=== PATIENT | male | born 1955 | race Caucasian/White ===

== ENCOUNTER 2016-06-05 09:18 | Inpatient (IN) | payer BC ==
[~2016-06-05] VITALS: Ht 177.8 cm; Wt 109.8 kg
[~2016-06-05 09:18] MED LIST: ACIDOPHILUS LAC1 CAP PO; ASPIRIN EC81 M1 PO; B C POWDER PO; BAYER CHEWABLE81 MG PO; BYSTOLIC5 MG PO; CYCLOBENZAPRINE10 MG PO; FOLIC ACID1 MG PO; HYDROCODONE-APA1 TAB PO; IMDUR30 MG PO; ISOSORBIDE MONO60 M1 PO; L-ARGININE500 MG PO; LEVAQUIN500 MG PO; PLAQUENIL200 MG PO; PLAVIX75 MG PO; POTASSIUM99 M1 PO; PRAVACHOL20 MG PO; PROTONIX40 MG PO; TREXALL5 MG OR; TREXALL5 MG PO
[2016-06-05 10:08] LABS: HEMATOCRIT 44.5 % (42.0-54.0); LYMPHOCYTES 14.7 % (15-50); MCH 33.1 pg (26.0-34.0); MCV 92.1 fL (80.0-100.0); MEAN PLATELET VOLUME 9.1 fL (7.4-10.4); NEUTROPHILS 74.6 % (40-80); RBC 4.83 10x6/uL (4.20-6.10); RDW 12.9 % (11.5-14.5); WBC 5.3 10x3/uL (4.8-10.8)
[2016-06-05 10:14] LABS: PLATELET COUNT 220 10x3/uL (130-400)
[2016-06-05 10:28] LABS: APTT 27.4 SECONDS (22.8-39.4); INR 1.1 (0.85-1.17); PROTIME 14.1 SECONDS (11.6-15.0)
[2016-06-05 10:35] LABS: ALBUMIN 3.9 g/dL (3.4-5.0); ALKALINE PHOSPHATASE 93 U/L (46-116); ALT (SGPT) 48 U/L (10-68); CALC OSMOLALITY 283 mosm/kg (275-300); CARBON DIOXIDE 24.6 mmol/L (21.0-32.0); CHLORIDE - SERUM 105 mmol/L (98-107); CREATININE - SERUM 0.7 mg/dL (0.6-1.3); GLUCOSE 99 mg/dL (74-106); POTASSIUM - SERUM 3.8 mmol/L (3.5-5.1); PROTEIN - SERUM 6.8 g/dL (6.4-8.2); SODIUM 139 mmol/L (136-145); UREA NITROGEN 30 mg/dL (7-18); eGFR NON AFRICAN AMERICAN > 90 mL/min (90-120)
[2016-06-05 13:33] VITALS: BP 151/80
--- NOTE | 2016-06-05 14:10 | NUR ---
Patient Name: ANGELITA WASHINGTON Admission Status: ER Accout number: [id number] Admission Date: 06-05-2016 : 1955 Admission Diagnosis: Attending: SB Current LOS: 1 Anticipated DC Date: Planned Disposition: Home or Self Care Primary Insurance: [employer] TRUE BLUE PPO Discharge Planning Comments: CM MET WITH PATIENT AND FAMILY REGARDING D/C NEEDS AND PLANS. PATIENT STATED HE LIVES WITH HIS SPOUSE (ANTONINA) AND SHE OR HIS DAUGHTER WOULD DRIVE HIM HOME AT DISCHARGE. PATIENT STATED HE HAS NO STEPS OR STAIRS AT HIS HOME. PATIENT STATED HE IS INDEPENDENT WITH HIS CARE AND HAS NO DME AT HOME. PATIENTS PCP IS DR. WHITE AND PHARMACY IS [facility]. PATIENT HAS NEVER HAD HOME HEALTH AND DOES NOT THINK HE WILL NEED IT AT DISCHARGE. CM WILL CONTINUE TO FOLLOW PATIENT WITH D/C NEEDS AND PLANS. PCP DR. WHITE [facility]- [phone] ANTONINA (SPOUSE) [phone] Window Glass Installer: Yi Jurado Is the patient Alert and Oriented? Yes 0 * How many steps to enter\exit or inside your home? 0 0 * PCP DR. WHITE 0 * Pharmacy [facility] 0 * Preadmission Environment Home with Family 0 * ADLs Independent 0 * Equipment None 0 * List name and contact numbers for known caregivers / representatives who currently or will assist patient after discharge: ANTONINA (SPOUSE) [phone] 0 * Community resources currently utilized None 0 * Additional services required to return to the preadmission environment? Yes 0 * Can the patient safely return to the preadmission environment? Yes 0 * Has this patient been hospitalized within the prior 30 days at any hospital? No 0 Grand Total: 0
--- NOTE | 2016-06-05 16:56 | NUR ---
Rehab Note- Rehab Prescreen received. The patient has BCBS and does not have [facility] stay benefits. Thank you for this referral! Luann Renee RN Clnical Liaison, [facility]
[2016-06-05 17:20] LABS: CKMB 2.5 U/L (0.0-3.6); CREATINE KINASE 165 UL (21-232)
[2016-06-05 17:23] LABS: TROPONIN-I < 0.017 ng/mL (0.000-0.060)
--- NOTE | 2016-06-05 19:30 | NUR ---
PATIENT OUT OF ROOM AT INITIAL WALKING ROUND.
[2016-06-05 20:00] VITALS: BP 143/87
[2016-06-05 20:23] LABS: CKMB 1.9 U/L (0.0-3.6); CREATINE KINASE 112 UL (21-232); TROPONIN-I < 0.017 ng/mL (0.000-0.060)
--- NOTE | 2016-06-05 21:00 | NUR ---
PATIENT BACK IN ROOM SITTING IN CHAIR. AAOX4. RR EVEN AND UNLABORED. 0 S/S OF DISTRESS. DENIES ANY PAIN.IV TO RIGHT HAND PATENT WITH NO REDNESS OR SWELLING.PUT TELEMETRY BACK ON PATIENT. FAMILY AT BEDSIDE. CALL LIGHT WITHIN REACH.
[2016-06-06] VITALS: BP 138/83
[2016-06-06 01:50] LABS: BASOPHILS 0.3 % (0.0-2.0); EOSINOPHILS 1.5 % (0-7); HEMATOCRIT 45.1 % (42.0-54.0); HEMOGLOBIN 15.8 g/dL (13.5-17.5); IMMATURE GRANULOCYTES 0.3 % (0-5); LYMPHOCYTES 18.5 % (15-50); MCH 33.3 pg (26.0-34.0); MEAN PLATELET VOLUME 9.8 fL (7.4-10.4); MONOCYTES 10.6 % (2-11); NEUTROPHILS 68.8 % (40-80); PLATELET COUNT 191 10x3/uL (130-400); RBC 4.74 10x6/uL (4.20-6.10); RDW 12.7 % (11.5-14.5)
[2016-06-06 01:53] LABS: MCV 95.1 fL (80.0-100.0); WBC 7.1 10x3/uL (4.8-10.8)
[2016-06-06 02:40] LABS: ALBUMIN 3.7 g/dL (3.4-5.0); ALKALINE PHOSPHATASE 83 U/L (46-116); ALT (SGPT) 45 U/L (10-68); BILIRUBIN - TOTAL 0.61 mg/dL (0.2-1.3); CALCIUM 8.5 mg/dL (8.5-10.1); CARBON DIOXIDE 25.9 mmol/L (21.0-32.0); CHLORIDE - SERUM 106 mmol/L (98-107); CHOL - HDL RATIO 4.5 ratio (2.3-4.9); CHOLESTEROL, TOTAL 183 mg/dL (0-200); CKMB 1.8 U/L (0.0-3.6); CREATINE KINASE 110 UL (21-232); GLUCOSE 93 mg/dL (74-106); HDL CHOLESTEROL 41 mg/dL (32-96); LDL CHOLESTEROL 123 mg/dL (0-100); MAGNESIUM - SERUM 1.9 mg/dL (1.8-2.4); PHOSPHOROUS 3.1 mg/dL (2.5-4.9); POTASSIUM - SERUM 3.9 mmol/L (3.5-5.1); PROTEIN - SERUM 6.2 g/dL (6.4-8.2); SODIUM 140 mmol/L (136-145); TRIGLYCERIDE 97 mg/dL (30-200)
[2016-06-06 02:55] LABS: CALC OSMOLALITY 281 mosm/kg (275-300); TROPONIN-I < 0.017 ng/mL (0.000-0.060); UREA NITROGEN 22 mg/dL (7-18); eGFR NON AFRICAN AMERICAN 81 mL/min (90-120)
[2016-06-06 04:00] VITALS: BP 111/54
--- NOTE | 2016-06-06 07:30 | NUR ---
RECIEVED PT DURING WALKING ROUNDS. PT RESTING COMFORTABLY IN BED WITH NO COMPLAINTS OT PAIN OR DISCOMFORT AT THIS TIME. ASSESSMENT DONE PER FLOWSHEET. BED IN LOW POSITION AND CALL LIGHT WITHIN REACH. WILL CONTINUE TO MONITOR.
[2016-06-06 07:55] VITALS: BP 129/76
--- NOTE | 2016-06-06 09:00 | NUR ---
MEDICATION PLAVIX AND ASPIRIN RENEWED PER WRITTEN ORDER FROM DR. ALBRECHT. INFORMED PT OF ORDER. BED IN LOW POSITION AND CALL LIGHT WITHIN REACH. WILL CONTINUE TO MONITOR.
[2016-06-06 11:16] VITALS: Ht 177.8 cm; Wt 109.8 kg
[2016-06-06 11:29] VITALS: BP 138/89
--- NOTE | 2016-06-06 11:45 | NUR ---
UP IN CHAIR AT THIS TIME. PT TOLERATING WITHOUT COMPLAINTS. ALERT AND ORIENTED X4, DENIES NEEDS. FAMILY AT BEDSIDE. CALL LIGHT IN REACH, WILL CONTINUE WITH PLAN OF CARE.
--- NOTE | 2016-06-06 12:30 | NUR ---
PT UP TO CHAIR AT THIS TIME. TOLERATED WELL. BED IN LOW POSITION AND CALL LIGHT WITHIN REACH. WILL CONTINUE TO MONITOR.
--- NOTE | 2016-06-06 13:36 | CN ---
PATIENT NAME:ANGELITA WASHINGTON MEDICAL RECORD: [id number] : 59 LOCATION:D.MS [facility]2214 ADMIT DATE: 06/05/16 ACCOUNT: [id number] CONSULTING PHYSICIAN: FRANCIE CABALLERO MD REFERRING PHYSICIAN: JIMMY WHITE MD DATE OF CONSULTATION: 06/05/2016 Cardiology Consultation HISTORY OF PRESENT ILLNESS: A 60-year-old gentleman with history of coronary artery disease, status post intervention, most recent diagnostic angiography showed patent stents, has been maintained on aspirin and Plavix. He had acute onset of dizziness, right leg heaviness consistent with CVA, was admitted with a CVA. We are asked to see him concerning his cardiovascular status. PAST MEDICAL HISTORY: 1. History of a nonsmall cell lung carcinoma status post upper lobectomy. 2. Coronary artery disease as described above. 3. Rheumatoid arthritis, previously on remittive agents, currently off these. ALLERGIES: None known. MEDICATIONS: Typically include Plavix 75 q. day, Imdur 60 mg q. day, Bystolic 5 q. day, pravastatin 20 q. day, aspirin 81 q. day, Dysart 10/325 q.4 hours p.r.n. SOCIAL HISTORY: Lives here in [place]. He no longer smokes. Easily takes care of his ADLs. No set exercise program. REVIEW OF SYSTEMS: The patient reports easy bruising but reports no swollen glands. The patient reports no fever, no night sweats, no significant weight gain, no significant weight loss. No significant exercise tolerance. The patient reports no dry eyes, no irritation, no vision change. Patient reports no difficulty hearing and no ear pain. Patient reports no frequent nose bleeds or nose and sinus problems. Patient reports on arm pain on exertion. No shortness of breath while lying down. No history of heart murmur. Patient reports no cough, no wheezing or coughing up blood. Patient reports no abdominal pain, no vomiting. Normal appetite. No diarrhea and not vomiting blood. No nausea and no constipation. Patient reports no incontinence. No difficulty urinating. No hematuria. No increased frequency. Patient reports no muscle aches. No weakness, no arthralgias, no back pain. No swelling of the extremities. Patient reports no abnormal mole, no jaundice, no rashes. Reports no loss of consciousness. No weakness and no numbness. No seizures, dizziness, or headaches. The patient reports no depression, no sleep disturbance, feeling safe in a relationship and no alcohol abuse. Patient reports on fatigue. Reports no runny nose or sinus pressure. No itching, no hives, and no frequent sneezing. PHYSICAL EXAMINATION: GENERAL: Pleasant gentleman who appears stated age, in no acute distress, obvious dysarthria. VITAL SIGNS: Blood pressure 151/80, pulse 61 and regular. HEENT: Normocephalic and atraumatic. NECK: No JVD or bruit. HEART: Regular. LUNGS: Pugh clear. CONSULT REPORT [id number] WASHINGTONANGELITA ABDOMEN: Soft and nontender. EXTREMITIES: Pulse 2+ with no edema. DIAGNOSTIC DATA: ECG shows normal sinus rhythm, no acute ST-T changes. IMPRESSION: Cerebrovascular accident with right-sided weakness, dysarthria. Agree with echocardiograph study to assess LV dysfunction, etc., other source of emboli. No history of atrial fibrillation, but continue telemetry. Further recommendations based on the above. TRANSINT:[id number] Voice Confirmation ID: [id number] DOCUMENT ID: [id number] FRANCIE CABALLERO MD at 1336 CC: [id number] DICTATION DATE: 06/05/16 1501 EXECUTIVE RECEPTIONIST: 06/05/16 1850 ADM IN [id number] [place] [address]
--- NOTE | 2016-06-06 14:20 | NUR ---
PT AND FAMILY ASKED TO SPEAK WITH DR. MORRISSEY ABOUT SOMETHING TO HELP PT SLEEP. INFORMED FAMILY THAT I WOULD SPEAK WITH DR. MORRISSEY WHEN SHE BECOMES AVAIABLE.
[2016-06-06 15:04] VITALS: BP 126/61
--- NOTE | 2016-06-06 16:40 | NUR ---
CM REASSESSMENT NOTE: PATIENT HAS BLUE CROSS INS. AND [facility] DOES NOT HAVE A CONTRACT WITH [facility]. CM CALL [facility] AND [facility]O STATED TO SEND REFERRAL ON THURSDAY AND THEY WOULD SEE IF HE WOULD BE APPROVED. CM WENT TO ROOM TO DISCUSS WITH FAMILY AND PATIENT THE POSSIBILITY OF [facility]. ONE OF THE FAMILY MEMBERS CALLED PATIENTS DAUGHTER AND WANTED ME TO TALK TO HER. WHEN I WAS EXPLAINING THAT [facility] COULD POSSIBLE TAKE PATIENT THE DAUGHTER STATED THAT SHE HAD WORKED FOR DR. WHITE FOR ABOUT 7 YEARS AND SHE SPOKE WITH DR. MORRISSEY AND SHE WAS GOING TO SEE WHAT SHE COULD DO. THEN DAUGHTER STATED SHE TALKED WITH JULIETTE IN REHAB AND SHE STATED IF HE WENT HOME FOR A COUPLE OF DAYS THEN THEY WOULD BE ABLE TO TAKE HIM AFTER THAT. THE DAUGHTER STATED SHE IS WORKING ON THIS AND WOULD KEEP IN TOUCH. CM WILL SEND REFERRAL THURSDAY IF [facility] DOES NOT WORK OUT AND DAUGHTER AGREED.
--- NOTE | 2016-06-06 19:36 | NUR ---
PATIENT UP IN CHAIR WITH FAMILY AT BEDSIDE. PATIENT DENIES NEEDS AT THIS TIME. PATIENT UNABLE TO MOVE/ACCOUNT SERVICES REPRESENTATIVE WITH RIGHT HAND.
[2016-06-06 20:00] VITALS: BP 140/88
--- NOTE | 2016-06-06 20:33 | NUR ---
PATIENT IS ABLE TO MOVE HIS RIGHT ARM UNASSISTED AND HAS A STRONGER LOTUS NOTES DEVELOPER THAN PREVIOUSLY.
[2016-06-07] VITALS: BP 132/66
[2016-06-07 04:00] VITALS: BP 137/64
[2016-06-07 05:05] LABS: BASOPHILS 0.3 % (0.0-2.0); EOSINOPHILS 1.1 % (0-7); HEMATOCRIT 45.2 % (42.0-54.0); HEMOGLOBIN 15.6 g/dL (13.5-17.5); IMMATURE GRANULOCYTES 0.3 % (0-5); LYMPHOCYTES 12.4 % (15-50); MCH 32.9 pg (26.0-34.0); MCHC 34.5 g/dL (31.0-37.0); MCV 95.4 fL (80.0-100.0); MEAN PLATELET VOLUME 9.7 fL (7.4-10.4); MONOCYTES 12.4 % (2-11); NEUTROPHILS 73.5 % (40-80); PLATELET COUNT 215 10x3/uL (130-400); RBC 4.74 10x6/uL (4.20-6.10); RDW 12.9 % (11.5-14.5)
[2016-06-07 05:28] LABS: ALBUMIN 3.4 g/dL (3.4-5.0); ALKALINE PHOSPHATASE 89 U/L (46-116); ALT (SGPT) 40 U/L (10-68); CALC OSMOLALITY 280 mosm/kg (275-300); CALCIUM 8.3 mg/dL (8.5-10.1); CARBON DIOXIDE 25.6 mmol/L (21.0-32.0); CHLORIDE - SERUM 107 mmol/L (98-107); GLUCOSE 99 mg/dL (74-106); POTASSIUM - SERUM 3.8 mmol/L (3.5-5.1); PROTEIN - SERUM 6.1 g/dL (6.4-8.2); SODIUM 140 mmol/L (136-145); UREA NITROGEN 18 mg/dL (7-18)
[2016-06-07 05:32] LABS: CREATININE - SERUM 0.7 mg/dL (0.6-1.3); eGFR NON AFRICAN AMERICAN > 90 mL/min (90-120)
--- NOTE | 2016-06-07 07:30 | NUR ---
RECIEVED PT DURING WALKING ROUNDS. PT RESTING COMFORTABLY IN BED WITH NO COMPLAINTS OF PAIN OR DISCOMFORT AT THIS TIME. ASSISTED PT UP TO THE BATHROOM AT THIS TIME. PT ABULATED WITH WALKER AND STNAD BY ASSIST. TOLERATED WELL. WAS ABLE TO HAVE SMALL BM. ASSISTED PT BACK TO BED. ASSESSMENT DONE PER FLOWSHEET. BED IN LOW POSITION AND CALL LIGHT WITHIN REACH. WILL CONTINUE TO [facility].
--- NOTE | 2016-06-07 07:49 | NUR ---
PATIENT SITTING UP ON SIDE OF BED ALERT. NO SIGNS OF DISTRESS NOTED. BED IN LOW POSITION. CALL LIGHT IN REACH.
[2016-06-07 08:28] VITALS: BP 126/85
--- NOTE | 2016-06-07 11:20 | NUR ---
PT SITTING UP IN CHAIR WITH NO COMPLAINTS OF NEEDS AT THIS TIME. FAMILY BEDSIDE. BED IN LOW POSITION AND CALL LIGHT WITHIN REACH. WILL CONTINUE TO MONITOR.
[2016-06-07 12:00] VITALS: BP 114/77
[2016-06-07 16:03] VITALS: BP 145/75
--- NOTE | 2016-06-07 19:32 | NUR ---
PATIENT SITTING IN CHAIR WITH FAMILY AT BEDSIDE. PATIENT DENIES NEEDS AT THIS TIME. CALL LIGHT WITHIN REACH.
[2016-06-07 20:00] VITALS: BP 123/72
[2016-06-08] VITALS (7 sets, daily range): BP systolic 93–138; BP diastolic 51–79
[2016-06-08 05:47] LABS: BASOPHILS 0.5 % (0.0-2.0); EOSINOPHILS 2.2 % (0-7); HEMATOCRIT 45.8 % (42.0-54.0); HEMOGLOBIN 15.7 g/dL (13.5-17.5); IMMATURE GRANULOCYTES 0.2 % (0-5); LYMPHOCYTES 25.3 % (15-50); MCH 32.8 pg (26.0-34.0); MCHC 34.3 g/dL (31.0-37.0); MCV 95.8 fL (80.0-100.0); MEAN PLATELET VOLUME 9.6 fL (7.4-10.4); MONOCYTES 12.8 % (2-11); PLATELET COUNT 187 10x3/uL (130-400); RBC 4.78 10x6/uL (4.20-6.10)
[2016-06-08 05:53] LABS: WBC 5.9 10x3/uL (4.8-10.8)
[2016-06-08 06:10] LABS: ALBUMIN 3.4 g/dL (3.4-5.0); ALKALINE PHOSPHATASE 103 U/L (46-116); ALT (SGPT) 40 U/L (10-68); CALC OSMOLALITY 284 mosm/kg (275-300); CALCIUM 8.5 mg/dL (8.5-10.1); CARBON DIOXIDE 27.3 mmol/L (21.0-32.0); CHLORIDE - SERUM 106 mmol/L (98-107); CREATININE - SERUM 0.8 mg/dL (0.6-1.3); GLUCOSE 91 mg/dL (74-106); PROTEIN - SERUM 6.6 g/dL (6.4-8.2); SODIUM 142 mmol/L (136-145); UREA NITROGEN 19 mg/dL (7-18); eGFR NON AFRICAN AMERICAN > 90 mL/min (90-120)
--- NOTE | 2016-06-08 07:37 | NUR ---
PATIENT RESTING IN BED WITH FAMILY AT THE BEDSIDE. PATIENT IS AWAKE, ALERT, AND ORIENTED X4. DENIES ANY PAIN AT PRESENT TIME. ASSESSMENT COMPLETED PER FLOWSHEET. PATIENT HAS RIGHT SIDED WEAKNESS. PATIENT IS UNABLE TO LIFT HIS RIGHT ARM/HAND AGAINST MY ARM. PATIENT IS ABLE TO BARELY LIFT RIGHT LOWER EXTREMITY UP TOWARDS MY ARM. PATIENT IS UNABLE TO PRESS RIGHT LOWER EXTREMITY AGAINST MY HANDS. IV SITE PATENT WITHOUT ANY S/S OF INFECTION IN PATIENT'S RIGHT HAND. NS INFUSING AT 75 ML/HR. PATIENT UNABLE TO SQUEEZE MY HAND WITH HIS RIGHT HAND. PATIENT DENIES NEEDS AT PRESENT TIME. CALL LIGHT IN PATIENT'S REACH. WILL MONITOR.
--- NOTE | 2016-06-08 19:00 | NUR ---
PATIENT SITTING IN CHAIR. AAOX4. RR EVEN AND UNLABORED. 0 S/S OF DISTRESS. STATES PAIN IS A 5/10 IN HIS BACK. IV TO RIGHT HAND PATENT WITH NO REDNESS OR SWELLING. TELEMETRY ON. IN ROOM. CALL LIGHT WITHIN REACH.
--- NOTE | 2016-06-09 00:10 | NUR ---
PATIENT SLEEPING WITH HEAD OF THE BED AT 10 DEGREES. NO VISUAL SIGNS OF DISTRESS. PATIENT'S BED IN LOWEST POSITION AND CALL LIGHT WITHIN REACH.
[2016-06-09 04:00] VITALS: BP 116/57
[2016-06-09 05:43] LABS: BASOPHILS 0.4 % (0.0-2.0); EOSINOPHILS 2.9 % (0-7); HEMATOCRIT 42.4 % (42.0-54.0); HEMOGLOBIN 14.4 g/dL (13.5-17.5); LYMPHOCYTES 27.5 % (15-50); MCH 32.7 pg (26.0-34.0); MCV 96.1 fL (80.0-100.0); MEAN PLATELET VOLUME 9.8 fL (7.4-10.4); MONOCYTES 13.6 % (2-11); NEUTROPHILS 55.6 % (40-80); PLATELET COUNT 185 10x3/uL (130-400); RBC 4.41 10x6/uL (4.20-6.10); RDW 12.8 % (11.5-14.5); WBC 4.5 10x3/uL (4.8-10.8)
[2016-06-09 06:05] LABS: ALKALINE PHOSPHATASE 89 U/L (46-116); ALT (SGPT) 36 U/L (10-68); CALC OSMOLALITY 284 mosm/kg (275-300); CALCIUM 8.4 mg/dL (8.5-10.1); CARBON DIOXIDE 28.2 mmol/L (21.0-32.0); CHLORIDE - SERUM 107 mmol/L (98-107); CREATININE - SERUM 0.7 mg/dL (0.6-1.3); GLUCOSE 93 mg/dL (74-106); POTASSIUM - SERUM 3.9 mmol/L (3.5-5.1); PROTEIN - SERUM 5.8 g/dL (6.4-8.2); SODIUM 142 mmol/L (136-145); UREA NITROGEN 19 mg/dL (7-18); eGFR NON AFRICAN AMERICAN > 90 mL/min (90-120)
[2016-06-09 08:10] VITALS: BP 122/64
--- NOTE | 2016-06-09 08:15 | NUR ---
ASSESSMENT PER FLOW SHEET.PT WITHOUT DISTRESS.FAMILY AT BEDSIDE.MONITOR FOR NEEDS.CALL LIGHT IN REACH
[2016-06-09 09:35] LABS: CHOL - HDL RATIO 3.4 ratio (2.3-4.9); LDL-HDL RATIO 1.9 ratio (1.5-3.5)
--- NOTE | 2016-06-09 10:30 | NUR ---
SITTIMG UP IN CHAIR,WITHOUT DISTRESS.
[2016-06-09 11:31] VITALS: BP 136/88
[2016-06-09] MEDS ORDERED: ASPIRIN325 MG PO (13:42)
--- NOTE | 2016-06-09 15:05 | NUR ---
OT NOTE: PT SITTING UP IN CHAIR; REPORTED THAT HE HAD BEEN UP SINCE MORING. OBSERVED INCREASED SHOULDER ELEVATION AND SCAPULAR RETRACTION, NO MOVEMENT NOTED IN SHOULDER FLEX/ABD; ELBOW FLEX/ABD; OR FINGER FLEX/ABD. CONT TO PRESENT WITH HYPOTONIA; NO SIGNS OF SHLDR SUBLUXATION AT THIS TIME. EDUCATED ON EXS PT COULD PERFORM IN BED (SROM EX)
--- NOTE | 2016-06-09 15:22 | NUR ---
CM REASSESSMENT NOTE: PATIENT IS DISCHARGING TODAY TO [facility] BY FACILITY VAN TO A (SKILLED BED). FAMILY AWARE OF THE PLAN. PATIENT AND ASKED PAPERS BE FAXED TO [employer] REGARDING THIS VISIT AND MEDICAL RECORDS ARE FAXING THE INFORMATION.
--- NOTE | 2016-06-09 16:25 | NUR ---
REPORT TO SAH[facility]ILAND [facility] CATH INTACT.DISCHARGE INSTRUCTIONS,STATES UNDERSTANDING.LEFT UNIT WITH [facility] AND FAMILY AT SIDE.
[2016-06-09 16:26] VITALS: BP 120/64
--- NOTE | 2016-06-27 08:46 | EC ---
PATIENT:ANGELITA WASHINGTON DATE OF SERVICE: 06/05/16 SEX: M MEDICAL RECORD: [id number] DATE OF : [birth year] LOCATION:D.MS [facility]221 AGE OF PATIENT: 60 ADMISSION DATE: 06/05/16 REFERRING PHYSICIAN: INTERPRETING PHYSICIAN: TAB SMITH MD ECHOCARDIOGRAM REPORT ECHO CHARGES 4 ECHO COMPLETE CLINICAL DIAGNOSIS: CVA HX OF CAD/STENTS/HTN ECHOCARDIOGRAPHIC MEASUREMENTS (adult normal given) AC root (d.<3.7cm) 3.4 LV Septum d (<1.2 cm> 1.5 Valve Excursion 1.5 LV Septum (systole) 1.8 Left Atria (s.<4.0cm> 3.8 LVPW d(<1.2cm) 1.8 RV (d.<2.3cm) 4.4 LVPW (sytole) 1.9 LV diastole(<5.6CM) 4.9 MV E-F(>70mm/sec) LV systole 3.0 LVOT Diameter 1.7 MV exc.(>10mm) 1.6 Est.ejection fraction (50-75%) Pericardial Effusion N DOPPLER: LVIT A 77.0 E 63.0 LA RVSP 27 LVOT 97 AOP1/2T Asc. Ao 184 RVOT 105 RA PA 140 AV Gradient Peak 13.48 AV Mean 7.60 AV Area 1.6 MV Gradient Peak 2.93 MV Mean 0.74 MV Area COMMENTS: Deputy Director: Cassandra BILLINGS Title Processor:Nely Smith TAPE# PACS DATE OF SERVICE: 06/05/2016 FINDINGS: 1. Left ventricular chamber size is within normal limits. Left ventricular systolic function is normal. Overall ejection fraction estimated at 60%. 2. Left atrium is within normal limits at 3.8 cm. Right atrium and right ventricular chamber sizes are mildly dilated. 3. Valvular structures have normal structure and motion. 4. Doppler interrogation reveals mild tricuspid regurgitation, no other valvular insufficiency or stenosis. ECHOCARDIOGRAM REPORT [id number] ANGELITA WASHINGTON 5. No evidence of pericardial effusion or left ventricular thrombus. TRANSINT:[id number] Voice Confirmation ID: [id number] DOCUMENT ID: [id number] 06/16/2016 Edited to correct date of service, TAB Benitez MD at 0846 CC: [id number] DICTATION DATE: 06/06/16 1147 CONSULTING SYSTEMS ENGINEER: 06/06/16 1506 DIS IN 06/09/16 [facility] [address] [place] [address]
== END 2016-06-09 16:29 | DRG 66 ==
LOC: D.ER 09:18 → D.MS 10:31
PROVIDERS: Emergency Medicine; Family Medicine; ADMIT Emergency Medicine
DX: I63.9 Cerebral infarction, unspecified (principal); R53.1 Weakness; R47.1 Dysarthria and anarthria; I25.10 Atherosclerotic heart disease of native coronary artery without angina pectoris; M06.9 Rheumatoid arthritis, unspecified; Z95.5 Presence of coronary angioplasty implant and graft; R29.810 Facial weakness; I10 Essential (primary) hypertension; I07.1 Rheumatic tricuspid insufficiency

== ENCOUNTER → 2016-08-14 09:07 | Outpatient (CLI) | payer BC ==
[2016-06-06 11:16] VITALS: BMI 34.7
[~2016-08-14 09:07] MED LIST changes: +ASPIRIN325 MG PO
== END | disposition home or self-care (01) ==
LOC: D.CT 09:07
DX: C34.12 Malignant neoplasm of upper lobe, left bronchus or lung (principal)

== ENCOUNTER 2017-01-13 05:05 | Day surgery (SDC) | payer BC ==
[2017-01-12 10:03] LABS: BASOPHILS 0.6 % (0-2); EOSINOPHILS 2.2 % (0-7); HEMATOCRIT 45.8 % (42.0-54.0); HEMOGLOBIN 16.4 g/dL (13.5-17.5); IMMATURE GRANULOCYTES 0.2 % (0-5); LYMPHOCYTES 21.1 % (15-50); MCH 32.8 pg (26.0-34.0); MCHC 35.8 g/dL (31.0-37.0); MCV 91.6 fL (80.0-100.0); MEAN PLATELET VOLUME 9.7 fL (7.4-10.4); MONOCYTES 14.5 % (2-11); NEUTROPHILS 61.4 % (40-80); PLATELET COUNT 162 10x3/uL (130-400); RDW 12.6 % (11.5-14.5)
[2017-01-12 10:08] LABS: CALC OSMOLALITY 285 mosm/kg (275-300); CALCIUM 8.8 mg/dL (8.5-10.1); CARBON DIOXIDE 24.8 mmol/L (21.0-32.0); CHLORIDE - SERUM 108 mmol/L (98-107); CREATININE - SERUM 0.9 mg/dL (0.6-1.3); GLUCOSE 101 mg/dL (74-106); POTASSIUM - SERUM 4.3 mmol/L (3.5-5.1); SODIUM 142 mmol/L (136-145); UREA NITROGEN 21 mg/dL (7-18); eGFR NON AFRICAN AMERICAN > 90 mL/min (90-120)
[~2017-01-13] VITALS: Ht 177.8 cm; Wt 115.7 kg
[2017-01-13] MEDS ORDERED: BAYER CHEWABLE81 MG PO (06:44)
[2017-01-13] MEDS ORDERED: ULTRAM50 MG PO (06:45)
[2017-01-13] MEDS ORDERED: LOVENOX120 MG/0.8 SC (06:46)
[2017-01-13] MEDS ORDERED: ZANAFLEX4 MG PO (06:47)
[2017-01-13] MEDS ORDERED: AGGRENOX 200/251 CAP PO (06:47)
[2017-01-13] MEDS ORDERED: COZAAR25 MG PO (06:47)
[2017-01-13] MEDS ORDERED: PROTONIX40 MG PO (06:48)
[2017-01-13 06:51] VITALS: BP 123/79; Ht 177.8 cm; Wt 115.7 kg
[2017-01-13] MEDS ORDERED: HYDROCODONE-APA1 TAB PO (09:26)
--- NOTE | 2017-01-13 14:02 | NUR ---
1200 IV DC WITH CATHER TIP INTACT
--- NOTE | 2017-01-13 16:31 | OP ---
PATIENT NAME: ANGELITA WASHINGTON MEDICAL RECORD: [id number] :59 LOCATION:[facility] ADMISSION DATE: SURGEON: MAGDY MACIAS MD DATE OF OPERATION: 01/13/2017 PREOPERATIVE DIAGNOSES: 1. Recurrent ventral hernia. 2. History of cerebrovascular accident. 3. Hypertension. 4. Coronary artery disease. 5. Gastroesophageal reflux disease. 6. History of antiplatelet therapy. SURGEON: Magdy Macias MD REPORT OF PROCEDURE: The patient's abdomen was prepped and draped in sterile fashion. A cutdown was made in the midline just above the umbilicus. Electrocautery was used to dissect through the subcutaneous tissues down to the midline fascia. The patient was noted to have a hernia defect which is that with the sac extending to the left of midline. Electrocautery was used to dissect around this hernia sac and it was excised down to the fascial edges. As we penetrated through the hernia defect and felt the abdominal wall, I could feel the previous mesh from our hernia repair present inferiorly and just inferior into the right of midline, there was another small hernia defect and superiorly, there was a pinhole hernia defect present. We end up dissecting off the fat off the top of the fascia until all 3 of these hernia defects were clearly visualized. The bridge between the 2 larger defects was opened up as I tried to release some of the adhesions from the inferior surface of the fascia. It was noted that the patient's small bowel was pretty densely adherent to the indwelling mesh. A care was taken to tediously dissect this small bowel off the hernia mesh. We eventually were able to free up the anterior abdominal wall surface. Once this was done, then a 6.4 cm Proceed mesh was inserted. This was sutured down on all 4 sides using interrupted 0 Prolenes. The mesh rested in good position. We irrigated out the wound thoroughly with normal saline and care was taken to make sure there was no sign of any active bleeding. At this point, the fascial edges were cleaned off and then reapproximated with running 0 Vicryl. The subcutaneous tissues were reapproximated with interrupted 3-0 Vicryl. We then infused 10 mL of 0.25% Marcaine into the surrounding tissues. The skin incision was then closed with running subcutaneous 5-0 Monocryl and dressed appropriately. COMPLICATIONS: None. CONDITION: Stable. ANESTHESIA: General endotracheal and local. BLOOD LOSS: Minimal. TRANSINT:[id number] Voice Confirmation ID: [id number] DOCUMENT ID: [id number] OPERATIVE REPORT [id number] ANGELITA WASHINGTON CHRISTIAN MD at 1631 CC: JIMMY WHITE MD [id number] DICTATION DATE: 01/13/17 0933 ROLL PICKER: 01/13/17 1419 [facility] 01/13/17 [id number] [place] [address]
== END 2017-01-13 12:15 | disposition home or self-care (01) ==
LOC: D.OPS 05:05 → D.PAN 07:30 → D.OPS 12:15
PROVIDERS: Surgery
DX: K43.9 Ventral hernia without obstruction or gangrene (principal); I25.10 Atherosclerotic heart disease of native coronary artery without angina pectoris; I10 Essential (primary) hypertension; K21.9 Gastro-esophageal reflux disease without esophagitis; J44.9 Chronic obstructive pulmonary disease, unspecified; Z95.5 Presence of coronary angioplasty implant and graft; Z87.891 Personal history of nicotine dependence; Z01.812 Encounter for preprocedural laboratory examination

== ENCOUNTER 2018-01-21 05:55 | Day surgery (SDC) | payer MEDICARE, BC ==
[2018-01-20 13:34] LABS: BASOPHILS 0.2 % (0-2); EOSINOPHILS 2.7 % (0-7); HEMATOCRIT 47.1 % (42.0-54.0); HEMOGLOBIN 17.3 g/dL (13.5-17.5); IMMATURE GRANULOCYTES 0.4 % (0-5); LYMPHOCYTES 23.3 % (15-50); MCH 33.5 pg (26.0-34.0); MCHC 36.7 g/dL (31.0-37.0); MCV 91.3 fL (80.0-100.0); MEAN PLATELET VOLUME 9.5 fL (7.4-10.4); MONOCYTES 17.2 % (2-11); NEUTROPHILS 56.2 % (40-80); PLATELET COUNT 143 10x3/uL (130-400); RBC 5.16 10x6/uL (4.20-6.10); WBC 5.2 10x3/uL (4.8-10.8)
[2018-01-20 14:06] LABS: CALC OSMOLALITY 278 mosm/kg (275-300); CALCIUM 8.6 mg/dL (8.5-10.1); CHLORIDE - SERUM 105 mmol/L (98-107); CREATININE - SERUM 0.9 mg/dL (0.6-1.3); GLUCOSE 71 mg/dL (74-106); POTASSIUM - SERUM 4.3 mmol/L (3.5-5.1); SODIUM 139 mmol/L (136-145); UREA NITROGEN 21 mg/dL (7-18); eGFR NON AFRICAN AMERICAN > 90 mL/min (90-120)
[~2018-01-21] VITALS: Ht 177.8 cm; Wt 118.2 kg
--- NOTE | ~2018-01-21 | OP ---
PATIENT NAME: ANGELITA WASHINGTON MEDICAL RECORD: [id number] :59 [facility] DATE: SURGEON: SHANNON COFFMAN MD DATE OF OPERATION: 01/21/2018 SURGEON: Shannon Coffman MD ANESTHESIA: General anesthetic. DIAGNOSIS: Obstructive BPH, inability to be catheterized. PROCEDURE: Cystoscopy, Irby catheter insertion over a guidewire. FINDINGS: No urethral stricture. He has an enlarged prostate with a false passage. BLOOD LOSS: None. CLINICAL HISTORY: This is a 62-year-old male, who is under general anesthetic. He is to have a ventral hernia repair laparoscopically by Dr. Magdy Fuentes. In the operating room, the OR staff were unable to get a Irby catheter inserted. Therefore, they called for urology assistance. I asked for the cystoscope and I planned to look at the site of obstruction and pass a Irby catheter over a guidewire. DESCRIPTION OF PROCEDURE: The patient was already under general anesthetic in supine position. I had the legs put in frog-leg position and he was prepped and draped. A 21-Uzbek cystoscope with 30-degree lens was used for visualization. The penile urethra shows no strictures. Prostatic urethra shows a very elevated median lobe which is obstructive. There is a false passage along the ridge of the median lobe from the previous Irby catheter insertion attempt. I could not deflect the scope sufficiently low enough as the scope was hitting the bed because the patient was in supine position. Therefore, the scope could not get past the median lobe into the bladder. However, by turning the scope upside down, I managed to get the wire to go into the bladder. The scope was then removed. Over the wire, an 18-Uzbek ruby tip Irby catheter was inserted all the way into the bladder. Once the Irby catheter was all the way to the hub, the balloon was inflated with 10 cc of sterile water. The guidewire was then completely removed. Irby catheter was put to bag drainage. Dr. Fuentes will then proceed with his surgery and at the end of the case, the Irby catheter will be removed. TRANSINT:[id number] Voice Confirmation ID: [id number] DOCUMENT ID: [id number] SHANNON COFFMAN MD at 0953 CC: [id number] DICTATION DATE: 01/21/18901 JIG AND FIXTURE BUILDER: 01/21/18 0927 [facility] [address] [facility], [facility]
--- NOTE | ~2018-01-21 | OP ---
PATIENT NAME: ANGELITA WASHINGTON MEDICAL RECORD: [id number] :59 LOCATION:D.ANGEL ADMISSION DATE: SURGEON: MAGDY MACIAS MD DATE OF OPERATION: 01/21/2018 PREOPERATIVE DIAGNOSES: 1. Recurrent ventral hernia. 2. Coronary artery disease. 3. History of CVA. 4. Hypertension. POSTOPERATIVE DIAGNOSES: 1. Recurrent ventral hernia. 2. Coronary artery disease. 3. History of CVA. 4. Hypertension. PROCEDURE: Laparoscopic ventral hernia repair with 15.4-cm Ventralight ST mesh. SURGEON: Magdy Macias MD VACUUM REPAIRER: Rhonda Johnston APRN REPORT OF OPERATION: Preoperatively, the patient had a Irby catheter placed by Dr. Resendiz because of an enlarged prostate. Once this was done and the abdomen was prepped and draped in sterile fashion, a Veress needle was inserted in the left upper quadrant and the abdomen was insufflated. An 11-mm Visiport trocar was placed in the left lateral abdomen. At this point, I could see there were a lot of adhesions present and I never could visualize the Veress needle. This was eventually just removed, placed another 5-mm trocar in the left lower quadrant, and performed dissection of the omental tissue which was adherent to the anterior abdominal wall. Once I did this, I was able to see that there was some bowel adherent to the anterior abdominal wall in the midline and up into a recurrent hernia in the midline, just above some old mesh. Another 5-mm trocar was placed in the left upper quadrant and a third one was placed in the epigastrium. With this, I was able to takedown all of the adhesions of the small bowel which was adherent to the anterior abdominal wall including some that was adherent to a piece of mesh that was flopping down on to the abdomen. This mesh was released from the small bowel. At this point, we had a clear view of the patient's hernia defect. It was measured out to be 4 x 4 cm; and just above this, approximately 4 cm away, there was another smaller midline fascial defect of less than a centimeter in size. We inserted a 15.4-cm circular Ventrio ST mesh into the abdomen. This was brought up to the anterior abdominal wall and affixed into place first with multiple tacks with a SecureStrap Endo Tacker device and then with interrupted 2-0 Prolenes on the 4 sides of it. The mesh appeared to lay well over the abdominal wall and completely covered up the midline fascial defects. There was no sign of any active bleeding at the conclusion of the case. The 11-mm trocar site fascia was closed with a single interrupted #0 Vicryl using a Billy-Jace suture passer device. The patient had two 5-mm trocars placed in the right lateral abdomen in order to facilitate tacking the mesh to the anterior abdominal wall. All of the trocars and insufflation were then removed. The wounds were irrigated out and then infused with 20 mL of 0.25% Marcaine with epinephrine. The skin incisions were closed with subcutaneous 5-0 Monocryl and dressed appropriately. OPERATIVE REPORT [id number] ANGELITA WASHINGTON COMPLICATIONS: None. CONDITION: Stable. ANESTHESIA: General endotracheal and local. BLOOD LOSS: 30 mL. TRANSINT:[id number] Voice Confirmation ID: [id number] DOCUMENT ID: [id number] MAGDY MACIAS MD at 1714 CC: JIMMY WHITE and TAB EMERSON [id number] DICTATION DATE: 01/21/181809 PIPELINE CONSTRUCTION INSPECTOR: 01/21/18 1836 [facility] [place] [facility] 01/22/18 [address] [place] [address]
[~2018-01-21 05:55] MED LIST changes: +AGGRENOX 200/251 CAP PO; +ATIVAN1 MG PO; +BELSOMRA20 MG PO; +COZAAR25 MG PO; +LOSARTAN POTASS25 MG PO; +LOVENOX120 MG/0.8 SC; +NORVASC5 MG PO; +PLAQUENIL 200200 MG PO; -PLAQUENIL200 MG PO; +RESTORIL15 MG PO; +ULTRAM50 MG PO; +ZANAFLEX4 MG PO
[2018-01-21 06:43] VITALS: BP 115/75; BMI 37.3
[2018-01-21] MEDS ORDERED: CYCLOBENZAPRINE10 MG PO (17:59)
[2018-01-21] MEDS ORDERED: NORCO 10-325 TA1 TAB PO (17:59)
[2018-01-21] MEDS ORDERED: FLOMAX0.4 MG PO (17:59)
[2018-01-22 00:46] VITALS: BP 146/92; Ht 177.8 cm; Wt 118.2 kg
[2018-01-22 06:26] VITALS: BP 129/75
[2018-01-22 08:48] VITALS: BP 155/91
[2018-01-22 12:17] VITALS: BP 119/73
[2018-01-22 12:30] VITALS: BP 139/65
== END 2018-01-22 16:05 | disposition home or self-care (01) ==
LOC: D.MS 05:55 → D.OPS 05:55 → D.PAN 08:00 → D.MS 19:10 → D.OPS 01-22 16:05
PROVIDERS: Surgery
DX: K43.2 Incisional hernia without obstruction or gangrene (principal); N40.1 Benign prostatic hyperplasia with lower urinary tract symptoms; N13.8 Other obstructive and reflux uropathy; I25.10 Atherosclerotic heart disease of native coronary artery without angina pectoris; Z86.73 Personal history of transient ischemic attack (TIA), and cerebral infarction without residual deficits; I10 Essential (primary) hypertension; Z01.812 Encounter for preprocedural laboratory examination

== ENCOUNTER → 2018-09-01 12:36 | Outpatient (CLI) | payer MEDICARE, BC ==
[2018-01-22 00:46] VITALS: BMI 37.3
[~2018-09-01 12:36] MED LIST changes: +FLOMAX0.4 MG PO; +NORCO 10-325 TA1 TAB PO
== END | disposition home or self-care (01) ==
LOC: D.RAD 12:36
PROVIDERS: ATTEND Internal Medicine Medical Oncology
DX: C34.12 Malignant neoplasm of upper lobe, left bronchus or lung (principal)